=== PATIENT | male | born 1970 | race Caucasian/White ===

== ENCOUNTER 2022-08-27 02:29 | Day surgery (SDC) | payer BC, SELFPAY ==
[2022-08-10 09:21] VITALS: BMI 31.8
--- NOTE | 2022-08-26 15:22 | PM.HPGS ---
History of Present Illness History of Present Illness Consent: Risks, benefits, and alternatives have been discussed and questions answered. Patient agrees to proceed with procedure. Chief complaint: neoplasm screening Narrative: Brant Earl Jr. is a 52 year old Female who was referred for colon cancer screening. Review of Systems Review of Systems: All systems reviewed & are unremarkable except as noted in HPI and below PMFSH Social History Social History Smoking status: Never smoker Alcohol intake: former Substance use: never Substance use type: does not use Living arrangements: with family Spiritual care concerns: No Meds Home Medications and Allergies Home Medications Medication Instructions Recorded Confirmed Type allopurinol 300 mg tablet 300 mg PO DAILY 08/10/22 08/10/22 History ascorbic acid (vitamin C) 250 mg 250 mg PO DAILY 08/10/22 08/10/22 History tablet cholecalciferol (vitamin D3) 25 50 mcg PO DAILY 08/10/22 08/10/22 History mcg (1,000 unit) tablet (Vitamin D3) estradiol 2 mg tablet 2 mg PO BID 08/10/22 08/10/22 History fenofibric acid (choline) 135 mg 135 mg PO DAILY 08/10/22 08/10/22 History capsule,delayed release montelukast 10 mg tablet 10 mg PO DAILY 08/10/22 08/10/22 History pregabalin 75 mg capsule 75 mg PO QAM 08/10/22 08/10/22 History pregabalin 75 mg capsule 150 mg PO QPM 08/10/22 08/10/22 History progesterone micronized 100 mg 100 mg PO DAILY 08/10/22 08/10/22 History capsule sertraline 100 mg tablet 100 mg PO DAILY 08/10/22 08/10/22 History tizanidine 2 mg tablet 2 mg PO Q6H PRN Muscle Spasm 08/10/22 08/10/22 History Allergies Allergy/AdvReac Type Severity Reaction Status Date / Time No Known Allergies Allergy Mild Verified 08/27/22 07:54 Exam Resp: Auscultation: clear to auscultation bilaterally Cardio: Rate: regular rate Rhythm: regular rhythm GI: GI Palp: Yes Soft to palpation and No Tenderness to palpation present (GI) Assessment and Plan Assessment and plan (1) Colon cancer screening: Code(s): Z12.11 - Encounter for screening for malignant neoplasm of colon Status: Acute Assessment and Plan: Colonoscopy with possible biopsy or polypectomy or cautery or injection of substances.
[2022-08-27 07:54] VITALS: BP 128/88; PULSE 90; RESP 20; TEMP 36.2; O2SAT 99
[2022-08-27] MEDS: LACTATED RINGERS 1,000 ML 150 ML IV CONT (08:03)
--- NOTE | 2022-08-27 08:22 | WPDANESEPPF ---
Anes - Initial Pre Proc Eval Procedure: Operation Date: 08/27/22 09:00 Proposed Procedures p Screening Colonoscopy - Vlad Valenzuela MD Date/Time: 08/27/22 08:22 Surgeon: Vlad Valenzuela MD Pre Op Diagnosis: neoplasm screening Patient Data Age: 52 Gender: M Height: 1.83 m Weight: 106.4 kg Last Vital Signs Temp 97.1 F L 08/27/22 07:54 Pulse 90 08/27/22 07:54 Resp 20 08/27/22 07:54 BP 128/88 08/27/22 07:54 Pulse Ox 99 08/27/22 07:54 O2 Del Method Room Air 08/27/22 07:54 Allergies Allergy/AdvReac Type Severity Reaction Status Date / Time No Known Allergies Allergy Mild Verified 08/27/22 07:54 Home Medications Medication Instructions Recorded Confirmed Type allopurinol 300 mg tablet 300 mg PO DAILY 08/10/22 08/10/22 History ascorbic acid (vitamin C) 250 mg 250 mg PO DAILY 08/10/22 08/10/22 History tablet cholecalciferol (vitamin D3) 25 50 mcg PO DAILY 08/10/22 08/10/22 History mcg (1,000 unit) tablet (Vitamin D3) estradiol 2 mg tablet 2 mg PO BID 08/10/22 08/10/22 History fenofibric acid (choline) 135 mg 135 mg PO DAILY 08/10/22 08/10/22 History capsule,delayed release montelukast 10 mg tablet 10 mg PO DAILY 08/10/22 08/10/22 History pregabalin 75 mg capsule 75 mg PO QAM 08/10/22 08/10/22 History pregabalin 75 mg capsule 150 mg PO QPM 08/10/22 08/10/22 History progesterone micronized 100 mg 100 mg PO DAILY 08/10/22 08/10/22 History capsule sertraline 100 mg tablet 100 mg PO DAILY 08/10/22 08/10/22 History tizanidine 2 mg tablet 2 mg PO Q6H PRN Muscle Spasm 08/10/22 08/10/22 History Patient hx anesthesia problems: none Family hx anesthesia problems: none Results Review: All pre-operative results and documents have been reviewed as part of the pre-operative evaluation. [facility], [facility] Social History Social History Smoking status: Never smoker Alcohol intake: former Substance use: never Substance use type: does not use Living arrangements: with family Spiritual care concerns: No Anes - Eval Final PreProcedure Day of Procedure 08/27/22 08:22 Patient weight: obese Heart: regular rate and rhythm Lungs: clear to auscultation Airway: Mallampati scale class II Neurological: alert and oriented Last oral intake: >/= 8 hours ASA classification: II Emergent: no Anesthetic plan: proceed Anesthesia type and monitoring: general GIVS and standard monitoring Results Review: All pre-operative results and documents have been reviewed as part of the pre-operative evaluation. Informed Consent: The patient's anesthetic plan and its attendant risks and benefits were discussed with the patient/family/POA. Questions were solicited and answers provided to the satisfaction of the patient/family/POA.
[2022-08-27 09:01] VITALS: BP 118/74; PULSE 69; RESP 17; O2SAT 95
[2022-08-27 09:11] VITALS: BP 98/70; PULSE 71; RESP 17; O2SAT 96
[2022-08-27 09:21] VITALS: BP 115/77; PULSE 70; RESP 26; O2SAT 96
== END 2022-08-27 09:24 | disposition home or self-care (01) ==
PROVIDERS: PCP Nurse Practitioner Family; Visit Provider Internal Medicine Gastroenterology
PROC: 0DJD8ZZ Inspection of Lower Intestinal Tract, Via Natural or Artificial Opening Endoscopic (ICD-10-PCS; CPT 45378; principal; 2022-08-27 09:00)
DX: Z12.11 Encounter for screening for malignant neoplasm of colon (principal); K64.8 Other hemorrhoids; K57.30 Diverticulosis of large intestine without perforation or abscess without bleeding; D12.0 Benign neoplasm of cecum; E66.9 Obesity, unspecified; Z68.31 Body mass index [BMI] 31.0-31.9, adult
CPT/HCPCS: 45380; 88305; J2704; J7120